=== PATIENT | female | born 1955 | race Caucasian/White ===

== ENCOUNTER 2025-02-19 07:03 | Inpatient (IN) | payer MEDICARE, BC ==
[~2025-02-19] VITALS: Ht 165.1 cm; Wt 65.8 kg
[~2025-02-19 07:03] MED LIST: ANESTHESIA TRAY IN PYXIS 1 EA TRAY MC ONE; BUPIVACAINE 0.5 % PF 150 MG/30 ML VIAL ONE; CEFAZOLIN 1 GM ONE; GENTAMICIN 80 MG/2 ML VIAL ONE; LIDOCAINE 2%-EPI 1:100,000 30 ML VIAL ONE; POLYMYXIN B SULFATE 500,000 UNITS ONE; VANCOMYCIN 1 GM VIAL ONE; dexaMETHasone SOD PHOSPHATE 2 ML ONE
[2025-02-19] MEDS ORDERED: FENTANYL PF 100MCG/2ML AMPUL ONE ×2 (07:11→10:17)
[2025-02-19] MEDS ORDERED: SUGAMMADEX SODIUM 200 MG/2 ML VIAL IV ONE (07:11)
[2025-02-19] MEDS ORDERED: LIDOCAINE 2% JEL UROJET 10 ML MM ONE (07:11)
[2025-02-19] MEDS ORDERED: ROCURONIUM BROMIDE 50 MG/5 ML ONE (07:12)
[2025-02-19] MEDS ORDERED: OXYMETAZOLINE HCL NASAL SPRAY 30 ML BOTTLE NS ONE (07:12)
[2025-02-19] MEDS ORDERED: MIDAZOLAM HCL 2 MG/2ML VIAL ONE (07:12)
[2025-02-19] MEDS ORDERED: HYDROMORPHONE 1 MG/1 ML DISP.SYRIN ONE (10:39)
[2025-02-19] MEDS ORDERED: ONDANSETRON HCL/PF 4 MG/2 ML VIAL IVP PRN (11:30)
[2025-02-19] MEDS: P-EPHED SUL/LORATADINE (24H) 1 TAB.SR.24H PO SCH (11:39)
[2025-02-19] MEDS: HYDROMORPHONE 1 MG/1 ML DISP.SYRIN IV PRN (11:52)
[2025-02-19] MEDS: IV NS 0.9% 1,000 ML IV PRN (11:56)
[2025-02-19] MEDS: CHLORHEXIDINE GLUCONATE 15 ML UDC MM SCH (13:10)
[2025-02-19] MEDS: PIPERACILLIN /TAZOBACTAM 3.375 G in IV D5W 50 ML IV SCH (13:54)
[2025-02-19] MEDS ORDERED: PROP10TA68 PO (14:32)
[2025-02-19] MEDS ORDERED: DEXT20TA6 PO (14:32)
[2025-02-19] MEDS ORDERED: ESTR1TAB PO (14:32)
[2025-02-19] MEDS ORDERED: RAME8TAB24 PO (14:32)
[2025-02-19] MEDS ORDERED: SENN-175 PO (14:32)
[2025-02-19] MEDS ORDERED: ALPR0.5T8 PO (14:32)
[2025-02-19] MEDS ORDERED: DULO30CA52 PO (14:32)
[2025-02-19] MEDS ORDERED: CYCL10TA9 PO (14:32)
[2025-02-19 15:50] VITALS: BP 106/64; TEMP 97.7; O2SAT 99
[2025-02-19 16:03] VITALS: BP 106/64; TEMP 97.3; O2SAT 99
[2025-02-19] MEDS ORDERED: CYCLOBENZAPRINE 10 MG TABLET PO PRN (19:00)
[2025-02-19] MEDS: MENTHOL/CETYLPYRD (CEPACOL) 1 LOZ LOZENGE PO PRN (19:12)
[2025-02-19 20:00] VITALS: BP 107/74; TEMP 97.5; O2SAT 96
[2025-02-19] MEDS: VANCOMYCIN 1 GM in IV D5W 250ml IV SCH (20:38)
[2025-02-19] MEDS: PROPRANOLOL HCL 10 MG TABLET PO SCH (21:48)
[2025-02-19] MEDS ORDERED: RAMELTEON 8 MG PO SCH (22:00)
[2025-02-20] MEDS: TRAZODONE 50 MG TABLET PO SCH (01:30)
[2025-02-20] MEDS: DULOXETINE HCL 30 MG CAPSULE.DR PO SCH (09:14)
[2025-02-20] MEDS: SENNOSIDES 8.6 MG TABLET PO SCH (09:15)
[2025-02-20] MEDS: ALPRAZOLAM 0.5 MG TABLET PO SCH (09:15)
[2025-02-20] MEDS: ACETAMINOPHEN 325 MG TABLET PO PRN (09:25)
[2025-02-20 10:54] VITALS: BP 112/58; TEMP 97.7; O2SAT 99
[2025-02-20] MEDS: HYDROCODONE/APAP 5/325MG TABLET PO PRN (13:45)
[2025-02-20] MEDS: POLYETHYLENE GLYCOL 3350 17 GM POWD.PACK PO ONE (15:45)
== END 2025-02-20 18:54 | disposition home or self-care (01) | DRG 908 ==
LOC: DS 07:03 → MED 07:09
PROVIDERS: ADMIT Internal Medicine; ATTEND Internal Medicine
PROC: 0NUR07Z Supplement Maxilla with Autologous Tissue Substitute, Open Approach (ICD-10-PCS; 2025-02-19)
PROC: 0N5R0ZZ Destruction of Maxilla, Open Approach (ICD-10-PCS; 2025-02-19)
PROC: 09BQ0ZZ Excision of Right Maxillary Sinus, Open Approach (ICD-10-PCS; 2025-02-19)
PROC: 09UQ07Z Supplement Right Maxillary Sinus with Autologous Tissue Substitute, Open Approach (ICD-10-PCS; 2025-02-19)
PROC: 09BQ0ZZ Excision of Right Maxillary Sinus, Open Approach (ICD-10-PCS; 2025-02-19)
PROC: 0KX10ZZ Transfer Facial Muscle, Open Approach (ICD-10-PCS; 2025-02-19)
PROC: 0NPW07Z Removal of Autologous Tissue Substitute from Facial Bone, Open Approach (ICD-10-PCS; 2025-02-19)
PROC: 0NPW04Z Removal of Internal Fixation Device from Facial Bone, Open Approach (ICD-10-PCS; 2025-02-19)
PROC: 0NSR04Z Reposition Maxilla with Internal Fixation Device, Open Approach (ICD-10-PCS; principal; 2025-02-19 07:30)
DX: T86.831 Bone graft failure (principal); K12.2 Cellulitis and abscess of mouth; S02.40CB Maxillary fracture, right side, initial encounter for open fracture; T81.83XA Persistent postprocedural fistula, initial encounter; I10 Essential (primary) hypertension; T84.328A Displacement of other bone devices, implants and grafts, initial encounter; M27.2 Inflammatory conditions of jaws; X58.XXXA Exposure to other specified factors, initial encounter; Z88.0 Allergy status to penicillin; Y83.8 Other surgical procedures as the cause of abnormal reaction of the patient, or of later complication, without mention of misadventure at the time of the procedure; D16.5 Benign neoplasm of lower jaw bone; M85.9 Disorder of bone density and structure, unspecified; K13.79 Other lesions of oral mucosa; Y93.9 Activity, unspecified; M84.88 Other disorders of continuity of bone, other site; M60.88 Other myositis, other site; Y92.009 Unspecified place in unspecified non-institutional (private) residence as the place of occurrence of the external cause; J32.0 Chronic maxillary sinusitis
CPT/HCPCS: A4223; A4338; C1713; G0378; J0690; J1100; J1171; J1580; J2250; J2405; J2543; J2704; J3010; J3373; J3490; J7030; J7060